=== PATIENT | female | born 1935 | race Two or more races ===

== ENCOUNTER → 2016-10-22 | Outpatient (CLI) | payer MEDICARE, MEDICAID | END | disposition home or self-care (01) | LOC: Rad HDHVI 09:34 | PROVIDERS: ATTEND Internal Medicine Cardiovascular Disease | DX: R07.89 Other chest pain (principal); E78.5 Hyperlipidemia, unspecified; R06.02 Shortness of breath | CPT/HCPCS: 93306; 93880 ==

== ENCOUNTER → 2016-11-06 | Outpatient (CLI) | payer MEDICARE, MEDICAID ==
[~2016-11-06] VITALS: Ht 149.9 cm; Wt 60.8 kg
[~2016-11-06] MED LIST: D5W 5% IV SCH; DIPYRIDAMOLE (5MG/ML) 10 ML VIAL IV ONE; DIPYRIDAMOLE IV SCH
[2016-11-06 12:28] LABS: Basophils # (auto) 0.1 uL; Basophils % (auto) 0.9 % (0.0-2.0); CONDITION Y; Eosinophils # (auto) 0.1 uL; Eosinophils % (auto) 2.1 % (0.0-7.0); Hematocrit 33.6 % (36.0-46.0); Hemoglobin 11.2 g/dL (12.2-16.2); Lymphocytes # (auto) 1.5 uL; Lymphocytes % (auto) 26.1 % (10.0-50.0); Mean Corpuscular Hemoglobin 29.1 pg (28.0-32.0); Mean Corpuscular Hgb Conc. 33.3 g/dL (32.0-36.0); Mean Corpuscular Volume 87.4 fL (80.0-100.0); Mean Platelet Volume 10.4 fL (7.4-10.4); Monocytes # (auto) 0.3 uL; Monocytes % (auto) 5.2 % (0.0-12.0); Neutrophils # (auto) 3.7 uL; Neutrophils % (auto) 65.7 % (37.0-80.0); Platelet Count (auto) 309 10^3/uL (140-450); Red Cell Distribution Width 15.1 % (11.6-16.0); Urine Bilirubin Negative (Negative); Urine Blood Negative /uL (Negative); Urine Color Yellow (Yellow); Urine Glucose Normal (Normal); Urine Ketone Negative (Negative); Urine Nitrite Negative (Negative); Urine Urobilinogen Normal (Negative); White Blood Cell 5.6 10^3/uL (4.4-10.8)
[2016-11-06 12:50] LABS: Albumin 3.7 g/dL (3.4-5.0); BUN/Creatinine Ratio 32.7; Bilirubin, Total 0.2 mg/dL (0.2-1.0); Calcium 9.2 mg/dL (8.5-10.1); Potassium 3.5 mmol/L (3.5-5.1); Total Protein 7.6 g/dL (6.4-8.2)
== END | disposition home or self-care (01) ==
LOC: Rad HDHVI 09:44
PROVIDERS: ATTEND Internal Medicine Cardiovascular Disease
DX: I10 Essential (primary) hypertension (principal); E78.00 Pure hypercholesterolemia, unspecified; E03.9 Hypothyroidism, unspecified; E11.9 Type 2 diabetes mellitus without complications; D64.9 Anemia, unspecified; E55.9 Vitamin D deficiency, unspecified; N39.0 Urinary tract infection, site not specified; D51.9 Vitamin B12 deficiency anemia, unspecified; E78.5 Hyperlipidemia, unspecified; R06.02 Shortness of breath
CPT/HCPCS: 36415; 78452; 80053; 80061; 81003; 82306; 82607; 83036; 84439; 84443; 85025; 93005; 96374; 96375; A9500; J1245

== ENCOUNTER → 2017-03-17 | Outpatient (CLI) | payer MEDICARE, MEDICAID | END | disposition home or self-care (01) | LOC: Rad HDHVI 08:47 | PROVIDERS: ATTEND Internal Medicine Cardiovascular Disease | DX: M85.9 Disorder of bone density and structure, unspecified (principal) | CPT/HCPCS: 77078 ==

== ENCOUNTER → 2017-08-07 | Outpatient (CLI) | payer MEDICARE, MEDICAID ==
[~2017-08-07] MED LIST changes: +ADENOSINE 54 MG in GIVE UN-DILUTED 0 ML IV ONE; +ADENOSINE 90 MG/30 ML INJ IV ONE; -D5W 5% IV SCH; -DIPYRIDAMOLE (5MG/ML) 10 ML VIAL IV ONE; -DIPYRIDAMOLE IV SCH
[2017-08-07 12:05] LABS: Basophils # (auto) 0.1 uL; Basophils % (auto) 0.9 % (0.0-2.0); Eosinophils # (auto) 0.3 uL; Eosinophils % (auto) 4.3 % (0.0-7.0); Hematocrit 30.5 % (36.0-46.0); Hemoglobin 10.1 g/dL (12.2-16.2); Lymphocytes # (auto) 1.5 uL; Lymphocytes % (auto) 24.7 % (10.0-50.0); Mean Corpuscular Hemoglobin 29.6 pg (28.0-32.0); Mean Corpuscular Hgb Conc. 33.3 g/dL (32.0-36.0); Mean Corpuscular Volume 88.9 fL (80.0-100.0); Monocytes # (auto) 0.5 uL; Monocytes % (auto) 7.4 % (0.0-12.0); Neutrophils # (auto) 3.8 uL; Neutrophils % (auto) 62.7 % (37.0-80.0); Nucleated Red Blood Cells % 0.1 %; Platelet Count (auto) 321 10^3/uL (140-450); Red Blood Cells 3.43 10^6/uL (4.0-5.20); Red Cell Distribution Width 14.2 % (11.8-14.3); White Blood Cell 6.1 10^3/uL (4.4-10.8)
[2017-08-07 12:12] LABS: Urine Blood Negative /uL (Negative); Urine Specific Gravity 1.009 (1.001-1.035)
[2017-08-07 12:20] LABS: Albumin 3.6 g/dL (3.4-5.0); BUN/Creatinine Ratio 24.5; Bilirubin, Total 0.2 mg/dL (0.2-1.0); Total Protein 7.3 g/dL (6.4-8.2)
[2017-08-07 12:24] LABS: Free T4 (Free Thyroxine) 0.96 ng/dL (0.89-1.76)
[2017-08-07 14:03] LABS: Potassium 2.9 mmol/L (3.5-5.1)
== END | disposition home or self-care (01) ==
LOC: Rad HDHVI 09:59
PROVIDERS: ATTEND Internal Medicine Cardiovascular Disease
DX: I10 Essential (primary) hypertension (principal); D64.9 Anemia, unspecified; E03.9 Hypothyroidism, unspecified; E11.9 Type 2 diabetes mellitus without complications; E55.9 Vitamin D deficiency, unspecified; D51.9 Vitamin B12 deficiency anemia, unspecified; N39.0 Urinary tract infection, site not specified; E78.5 Hyperlipidemia, unspecified; I47.2 Ventricular tachycardia; M60.9 Myositis, unspecified; M77.9 Enthesopathy, unspecified; R06.01 Orthopnea
CPT/HCPCS: 36415; 78452; 80053; 80061; 81003; 82306; 82607; 83036; 84439; 84443; 85025; 93005; 93306; 96374; 96375; A9500; J0153

== ENCOUNTER 2017-10-17 15:57 | Inpatient (IN) | payer MEDICARE, MEDICAID ==
[~2017-10-17] VITALS: Ht 149.9 cm; Wt 59.3 kg
[2017-10-17 16:22] VITALS: BP 153/70
[2017-10-17 16:36] VITALS: BP 153/70
[2017-10-17] MEDS ORDERED: MORPHINE SULF(PF) 0.5MG/ML 10ML VIAL IV PRN (17:15)
[2017-10-17] MEDS ORDERED: HYDROmorphone HCL 2 MG/ML VL IV PRN (17:15)
[2017-10-17] MEDS ORDERED: NITROGLYCERIN 0.4 MG SL TAB SL PRN (17:15)
[2017-10-17] MEDS: SODIUM CHLORIDE 0.9% 1,000 ML IV SCH (17:38)
[2017-10-17 17:43] LABS: Basophils # (auto) 0.1 uL; Eosinophils # (auto) 0.2 uL; Eosinophils % (auto) 2.3 % (0.0-7.0); Hematocrit 30.1 % (36.0-46.0); Hemoglobin 9.9 g/dL (12.2-16.2); Lymphocytes # (auto) 1.6 uL; Lymphocytes % (auto) 22.9 % (10.0-50.0); Mean Corpuscular Hemoglobin 28.4 pg (28.0-32.0); Mean Corpuscular Volume 85.9 fL (80.0-100.0); Monocytes # (auto) 0.5 uL; Monocytes % (auto) 7.6 % (0.0-12.0); Neutrophils # (auto) 4.6 uL; Neutrophils % (auto) 66.2 % (37.0-80.0); Platelet Count (auto) 361 10^3/uL (140-450); Red Cell Distribution Width 14.4 % (11.8-14.3)
[2017-10-17] MEDS ORDERED: CARV12.544 PO (17:57)
[2017-10-17] MEDS ORDERED: ONDA-101 SL (17:57)
[2017-10-17] MEDS ORDERED: AML5T PO (17:57)
[2017-10-17] MEDS ORDERED: FURO20TA3 PO (17:57)
[2017-10-17] MEDS ORDERED: POTA10TA51 PO (17:57)
[2017-10-17] MEDS ORDERED: HYDR-4683 PO (17:57)
[2017-10-17] MEDS ORDERED: ASP81EC PO (17:57)
[2017-10-17] MEDS ORDERED: EMPA1TAB PO (17:57)
[2017-10-17] MEDS ORDERED: ISOS30TA4 PO (17:57)
[2017-10-17] MEDS ORDERED: FER325T PO (17:57)
[2017-10-17] MEDS ORDERED: PAR20T PO (17:57)
[2017-10-17] MEDS ORDERED: VALS160T53 PO (17:57)
[2017-10-17 18:12] LABS: Alanine Aminotransferase 59 U/L (13-56); Albumin 3.2 g/dL (3.4-5.0); Alkaline Phosphatase 119 U/L (45-117); Anion Gap 9 (5-15); Aspartate Aminotransferase 29 U/L (15-37); BUN/Creatinine Ratio 27.3; Bilirubin, Direct < 0.1 mg/dL (0-0.2); Bilirubin, Total 0.2 mg/dL (0.2-1.0); Blood Urea Nitrogen 21 mg/dL (7-18); Calcium 9.2 mg/dL (8.5-10.1); Carbon Dioxide 25 mmol/L (21-32); Chloride 104 mmol/L (98-107); GFR African American 93 mL/min; GFR Non-African American 76 mL/min; Glucose 95 mg/dL (74-106); Potassium 3.7 mmol/L (3.5-5.1); Sodium 138 mmol/L (136-145); Total Protein 7.1 g/dL (6.4-8.2)
[2017-10-17 18:13] LABS: INR 0.98 (0.9-1.15); Partial Thromboplastin Time 26.6 sec (23.78-33.04); Prothrombin Time 10.5 sec (9.27-12.13)
[2017-10-17] MEDS: FAMOTIDINE 20 MG TAB PO SCH (21:07)
[2017-10-17 22:00] VITALS: BP 159/68
[2017-10-17] MEDS: MEPERIDINE HCL (50 MG/ML) 1 ML VIAL IV PRN (22:30)
[2017-10-18 05:00] VITALS: BP 137/68
[2017-10-18 08:00] VITALS: BP 140/63
[2017-10-18] MEDS ORDERED: IOHEXOL 300 MG/ML 100ML BOTTLE IJ ONE (10:10)
[2017-10-18 12:00] VITALS: BP 160/77
[2017-10-18] MEDS: FAMOTIDINE 20 MG TAB PO SCH ×2 (14:00→21:36)
[2017-10-18] MEDS: FUROSEMIDE 40 MG TAB PO SCH (14:00)
[2017-10-18] MEDS: VALSARTAN 80 MG TAB PO SCH (14:01)
[2017-10-18] MEDS: ISOSORBIDE MONONITRATE 60 MG TAB PO SCH (14:02)
[2017-10-18] MEDS: POTASSIUM CHL 10 Meq TABLET PO SCH (14:02)
[2017-10-18] MEDS: amLODIPine BESYLATE 5 MG TAB PO SCH (14:02)
[2017-10-18] MEDS: SODIUM CHLORIDE 0.9% 1,000 ML IV SCH (14:08)
[2017-10-18 15:00] VITALS: BP 131/58
[2017-10-18] MEDS: MEPERIDINE HCL (50 MG/ML) 1 ML VIAL IV PRN (20:10)
[2017-10-18 22:06] VITALS: BP 105/53
[2017-10-19 05:13] VITALS: BP 141/64
[2017-10-19] MEDS: MEPERIDINE HCL (50 MG/ML) 1 ML VIAL IV PRN ×3 (06:15→21:27)
[2017-10-19 09:00] VITALS: BP 114/65
[2017-10-19] MEDS: POTASSIUM CHL 10 Meq TABLET PO SCH (09:54)
[2017-10-19] MEDS: VALSARTAN 80 MG TAB PO SCH (09:55)
[2017-10-19] MEDS: amLODIPine BESYLATE 5 MG TAB PO SCH (09:56)
[2017-10-19] MEDS: ISOSORBIDE MONONITRATE 60 MG TAB PO SCH (09:56)
[2017-10-19] MEDS: SODIUM CHLORIDE 0.9% 1,000 ML IV SCH (09:57)
[2017-10-19] MEDS: FUROSEMIDE 40 MG TAB PO SCH (09:57)
[2017-10-19] MEDS: FAMOTIDINE 20 MG TAB PO SCH ×2 (10:02→21:27)
[2017-10-19 12:50] VITALS: BP 103/59
[2017-10-19 17:00] VITALS: BP 135/66
[2017-10-19 22:00] VITALS: BP 132/59
[2017-10-20] MEDS: SODIUM CHLORIDE 0.9% 1,000 ML IV SCH (05:41)
[2017-10-20 06:00] VITALS: BP 135/67
[2017-10-20] MEDS: MEPERIDINE HCL (50 MG/ML) 1 ML VIAL IV PRN ×3 (07:12→22:22)
[2017-10-20 08:11] VITALS: BP 147/79
[2017-10-20] MEDS: POTASSIUM CHL 10 Meq TABLET PO SCH (10:00)
[2017-10-20] MEDS: FUROSEMIDE 40 MG TAB PO SCH (10:00)
[2017-10-20] MEDS: FAMOTIDINE 20 MG TAB PO SCH ×2 (11:44→22:21)
[2017-10-20] MEDS: amLODIPine BESYLATE 5 MG TAB PO SCH (11:44)
[2017-10-20] MEDS: VALSARTAN 80 MG TAB PO SCH (11:44)
[2017-10-20] MEDS: ISOSORBIDE MONONITRATE 60 MG TAB PO SCH (11:45)
[2017-10-20 13:00] VITALS: BP 147/68
[2017-10-20] MEDS ORDERED: MIDAZOLAM HCL 1MG/1ML-2 ML VIAL ONE (13:31)
[2017-10-20] MEDS ORDERED: fentaNYL CITRATE 100 MCG/2 ML VL ONE (13:31)
[2017-10-20] MEDS ORDERED: LIDOCAINE 2% (LOCAL ANESTH.) PF 5ml SDV ONE (13:36)
[2017-10-20 16:18] VITALS: BP 129/77
[2017-10-20 20:00] VITALS: BP 115/58
[2017-10-20 22:00] VITALS: BP 115/58
[2017-10-21] MEDS: SODIUM CHLORIDE 0.9% 1,000 ML IV SCH ×2 (01:15→21:15)
[2017-10-21] MEDS: MEPERIDINE HCL (50 MG/ML) 1 ML VIAL IV PRN ×4 (03:34→22:15)
[2017-10-21 06:07] VITALS: BP 120/61
[2017-10-21 08:31] VITALS: BP 148/68
[2017-10-21] MEDS: VALSARTAN 80 MG TAB PO SCH (08:38)
[2017-10-21] MEDS: POTASSIUM CHL 10 Meq TABLET PO SCH (08:39)
[2017-10-21] MEDS: ISOSORBIDE MONONITRATE 60 MG TAB PO SCH (08:39)
[2017-10-21] MEDS: amLODIPine BESYLATE 5 MG TAB PO SCH (08:40)
[2017-10-21] MEDS: FUROSEMIDE 40 MG TAB PO SCH (08:40)
[2017-10-21] MEDS: FAMOTIDINE 20 MG TAB PO SCH ×2 (08:40→22:00)
[2017-10-21 12:55] VITALS: BP 132/57
[2017-10-21 16:17] VITALS: BP 117/76
[2017-10-21] MEDS: ACETAMINOPHEN 325 MG TAB PO PRN (16:19)
[2017-10-21 16:59] LABS: Basophils # (auto) 0 uL; Basophils % (auto) 0.6 % (0.0-2.0); Eosinophils # (auto) 0.2 uL; Eosinophils % (auto) 2.3 % (0.0-7.0); Hematocrit 27.4 % (36.0-46.0); Hemoglobin 9.1 g/dL (12.2-16.2); Lymphocytes # (auto) 1.4 uL; Lymphocytes % (auto) 18.6 % (10.0-50.0); Mean Corpuscular Hemoglobin 28.2 pg (28.0-32.0); Mean Corpuscular Hgb Conc. 33.2 g/dL (32.0-36.0); Mean Corpuscular Volume 84.8 fL (80.0-100.0); Monocytes # (auto) 0.7 uL; Monocytes % (auto) 9.3 % (0.0-12.0); Neutrophils # (auto) 5.3 uL; Neutrophils % (auto) 69.2 % (37.0-80.0); Platelet Count (auto) 298 10^3/uL (140-450); Red Blood Cells 3.23 10^6/uL (4.0-5.20); Red Cell Distribution Width 14.1 % (11.8-14.3); White Blood Cell 7.7 10^3/uL (4.4-10.8)
[2017-10-21 16:59] LABS: Urine Bacteria NONE SEEN /hpf (None Seen); Urine Blood Negative /uL (Negative); Urine WBC 1 /hpf (0 - 5)
[2017-10-21 17:12] LABS: Albumin 2.9 g/dL (3.4-5.0); BUN/Creatinine Ratio 21.3; Bilirubin, Total 0.2 mg/dL (0.2-1.0); Calcium 8.5 mg/dL (8.5-10.1); Potassium 3.5 mmol/L (3.5-5.1); Total Protein 6.7 g/dL (6.4-8.2)
[2017-10-21 22:51] VITALS: BP 131/75
[2017-10-22] MEDS: MEPERIDINE HCL (50 MG/ML) 1 ML VIAL IV PRN ×4 (04:57→21:24)
[2017-10-22 05:06] VITALS: BP 136/66
[2017-10-22 08:17] VITALS: BP 150/63
[2017-10-22] MEDS: ISOSORBIDE MONONITRATE 60 MG TAB PO SCH (09:21)
[2017-10-22] MEDS: FUROSEMIDE 40 MG TAB PO SCH (09:21)
[2017-10-22] MEDS: FAMOTIDINE 20 MG TAB PO SCH ×2 (09:22→23:04)
[2017-10-22] MEDS: POTASSIUM CHL 10 Meq TABLET PO SCH (09:22)
[2017-10-22] MEDS: amLODIPine BESYLATE 5 MG TAB PO SCH (09:23)
[2017-10-22] MEDS: VALSARTAN 80 MG TAB PO SCH (09:23)
[2017-10-22] MEDS: ACETAMINOPHEN 325 MG TAB PO PRN ×3 (11:06→23:39)
[2017-10-22] MEDS ORDERED: BRIN1SUS EACHEYE (11:25)
[2017-10-22] MEDS ORDERED: TIMO0.5S3 EACHEYE (11:25)
[2017-10-22] MEDS ORDERED: TRAV0.00 EACHEYE (11:25)
[2017-10-22 12:44] VITALS: BP 139/63
[2017-10-22 17:00] VITALS: BP 130/68
[2017-10-22] MEDS: SODIUM CHLORIDE 0.9% 1,000 ML IV SCH (17:27)
[2017-10-22 22:00] VITALS: BP 150/65
[2017-10-22] MEDS: EYE EACHEYE SCH ×2 (23:02→23:03)
[2017-10-22] MEDS: AZOPT 1% EACHEYE SCH (23:02)
[2017-10-22] MEDS: TIMOLOL MAL 0.5% OPTH(EYE) SOL 5ML EACHEYE SCH (23:03)
[2017-10-22] MEDS: TRAVATAN 0.004% EACHEYE SCH (23:03)
[2017-10-23 05:00] VITALS: BP 159/68
[2017-10-23] MEDS: ACETAMINOPHEN 325 MG TAB PO PRN ×3 (06:16→23:03)
[2017-10-23 08:00] VITALS: BP 153/74
[2017-10-23 09:00] VITALS: BP 153/74
[2017-10-23] MEDS: TIMOLOL MAL 0.5% OPTH(EYE) SOL 5ML EACHEYE SCH ×2 (10:25→23:01)
[2017-10-23] MEDS: EYE EACHEYE SCH ×3 (10:25→23:01)
[2017-10-23] MEDS: AZOPT 1% EACHEYE SCH ×2 (10:25→23:01)
[2017-10-23] MEDS: POTASSIUM CHL 10 Meq TABLET PO SCH (10:26)
[2017-10-23] MEDS: amLODIPine BESYLATE 5 MG TAB PO SCH (10:26)
[2017-10-23] MEDS: FUROSEMIDE 40 MG TAB PO SCH (10:26)
[2017-10-23] MEDS: ISOSORBIDE MONONITRATE 60 MG TAB PO SCH (10:27)
[2017-10-23] MEDS: FAMOTIDINE 20 MG TAB PO SCH ×2 (10:27→23:01)
[2017-10-23] MEDS: VALSARTAN 80 MG TAB PO SCH (10:27)
[2017-10-23 13:00] VITALS: BP 149/74
[2017-10-23 17:21] VITALS: BP 146/74
[2017-10-23] MEDS ORDERED: EPOETIN ALFA 4,000 UNIT/ML VL SC ONE (18:00)
[2017-10-23] MEDS: FERROUS SULFATE 325 MG TAB PO SCH (18:23)
[2017-10-23 22:00] VITALS: BP 136/66
[2017-10-23] MEDS: TRAVATAN 0.004% EACHEYE SCH (23:01)
[2017-10-24 05:00] VITALS: BP 148/70
[2017-10-24 08:00] VITALS: BP 157/66
[2017-10-24] MEDS: FERROUS SULFATE 325 MG TAB PO SCH (08:21)
[2017-10-24 09:00] VITALS: BP 157/66
[2017-10-24] MEDS: TIMOLOL MAL 0.5% OPTH(EYE) SOL 5ML EACHEYE SCH (10:14)
[2017-10-24] MEDS: FAMOTIDINE 20 MG TAB PO SCH (10:15)
[2017-10-24] MEDS: amLODIPine BESYLATE 5 MG TAB PO SCH (10:15)
[2017-10-24] MEDS: VALSARTAN 80 MG TAB PO SCH (10:16)
[2017-10-24] MEDS: FUROSEMIDE 40 MG TAB PO SCH (10:16)
[2017-10-24] MEDS: POTASSIUM CHL 10 Meq TABLET PO SCH (10:16)
[2017-10-24] MEDS: ISOSORBIDE MONONITRATE 60 MG TAB PO SCH (10:16)
[2017-10-24] MEDS: EYE EACHEYE SCH (10:17)
[2017-10-24] MEDS: AZOPT 1% EACHEYE SCH (10:17)
[2017-10-24] MEDS: ACETAMINOPHEN 325 MG TAB PO PRN (11:16)
[2017-10-24 13:00] VITALS: BP 145/73
[2017-10-24 15:15] VITALS: BP 157/74
== END 2017-10-24 16:30 | disposition home or self-care (01) | DRG 181 ==
LOC: TELE-WESTW 16:08 → WEST WING 20:54
PROVIDERS: ADMIT Internal Medicine Cardiovascular Disease; ATTEND Internal Medicine Cardiovascular Disease
PROC: 0BBC3ZX Excision of Right Upper Lung Lobe, Percutaneous Approach, Diagnostic (ICD-10-PCS; principal; 2017-10-20)
DX: C34.11 Malignant neoplasm of upper lobe, right bronchus or lung (principal); E44.1 Mild protein-calorie malnutrition; D64.9 Anemia, unspecified; R91.8 Other nonspecific abnormal finding of lung field; I10 Essential (primary) hypertension; E78.5 Hyperlipidemia, unspecified; E86.9 Volume depletion, unspecified; J44.9 Chronic obstructive pulmonary disease, unspecified; R74.8 Abnormal levels of other serum enzymes; K21.0 Gastro-esophageal reflux disease with esophagitis; H40.9 Unspecified glaucoma; I25.10 Atherosclerotic heart disease of native coronary artery without angina pectoris; Z71.3 Dietary counseling and surveillance; Z90.49 Acquired absence of other specified parts of digestive tract
CPT/HCPCS: 10022; 36415; 71045; 71250; 71260; 74177; 77012; 80053; 80076; 81001; 85025; 85610; 85730; 87086; G0463; J2250

== ENCOUNTER → 2017-10-17 | Outpatient (CLI) | payer MEDICARE, MEDICAID ==
[~2017-10-17] MED LIST changes: -ADENOSINE 54 MG in GIVE UN-DILUTED 0 ML IV ONE; -ADENOSINE 90 MG/30 ML INJ IV ONE; +ALPR0.254 PO; +AML5T PO; +ASP81EC PO; +BRIN1SUS EACHEYE; +BRIN1SUS OP; +CARV12.544 PO; +EMPA1TAB PO; +FER325T PO; +FURO20TA3 PO; +GUAI100S6 PO; +HYDR-4683 PO; +IRBE300T46 PO; +ISOS30TA4 PO; +ONDA-101 SL; +PAR20T PO; +PERCOT PO; +POTA10TA51 PO; +SODIUM CHLORIDE 0.9% 250 ML IV ONE; +TIMO0.5S38 EACHEYE; +TRAV0.00 EACHEYE; +VALS160T53 PO
[2017-10-17 13:45] VITALS: BP 159/71
[2017-10-17 16:00] VITALS: BP 159/61
== END | disposition home or self-care (01) ==
LOC: CHF HDHVI 13:34
PROVIDERS: ATTEND Internal Medicine Cardiovascular Disease
DX: K57.92 Diverticulitis of intestine, part unspecified, without perforation or abscess without bleeding (principal); R91.8 Other nonspecific abnormal finding of lung field
CPT/HCPCS: G0463

== ENCOUNTER 2018-01-21 07:10 | Inpatient (IN) | payer MEDICARE, MEDICAID ==
[~2018-01-21] VITALS: Ht 137.2 cm; Wt 59.4 kg
[2018-01-21 07:10] VITALS: BP 121/67
[~2018-01-21 07:10] MED LIST changes: -ALPR0.254 PO; -BRIN1SUS OP; -GUAI100S6 PO; -IRBE300T46 PO; -PERCOT PO; -SODIUM CHLORIDE 0.9% 250 ML IV ONE
[2018-01-21 08:00] VITALS: BP 121/67
[2018-01-21 09:00] VITALS: BP 121/67
[2018-01-21] MEDS ORDERED: DEXTROSE (50%) 50ML SYRG IV PRN (09:15)
[2018-01-21] MEDS ORDERED: MORPHINE SULF INJ 2 MG/ML SYRINGE 1ML IV PRN (09:15)
[2018-01-21] MEDS ORDERED: NITROGLYCERIN 0.4 MG SL TAB SL PRN (09:15)
[2018-01-21] MEDS ORDERED: HYDROcodone-ACET 10/325MG TAB PO PRN (09:15)
[2018-01-21] MEDS ORDERED: IOHEXOL 300 MG/ML 100ML BOTTLE IJ ONE (09:38)
[2018-01-21] MEDS ORDERED: LORazepam 2MG/ML-1ML VIAL IV PRN (11:15)
[2018-01-21] MEDS: carBAMazepine 200 MG TAB PO SCH (11:17)
[2018-01-21] MEDS: SODIUM CHLORIDE 0.9% 1,000 ML IV SCH (11:17)
[2018-01-21] MEDS: InsuLIN REG 1unit/0.01ml Soln (100units/ml) SC SCH ×3 (11:30→22:17)
[2018-01-21] MEDS: ACCU-CHEK COMFORT CURVE STRIP VI SCH ×3 (11:31→22:16)
[2018-01-21] MEDS: DEXAMETHASONE SOD PHOS 4 MG/1ML SDV INJ IV SCH ×3 (11:32→23:37)
[2018-01-21] MEDS ORDERED: GUAI100S6 PO (12:07)
[2018-01-21] MEDS ORDERED: EMPA1TAB PO (12:07)
[2018-01-21] MEDS ORDERED: ALPR0.254 PO (12:07)
[2018-01-21] MEDS ORDERED: PERCOT PO (12:07)
[2018-01-21] MEDS ORDERED: BRIN1SUS OP (12:07)
[2018-01-21] MEDS ORDERED: IRBE300T46 PO (12:07)
[2018-01-21] MEDS ORDERED: ALPRAZolam 0.25 MG TAB PO PRN (12:15)
[2018-01-21] MEDS ORDERED: OXYCODONE W/ ACETAMINOPHEN 5/325MG TABLET PO PRN (12:15)
[2018-01-21] MEDS ORDERED: ONDANSETRON ODT 4 MG TAB PO PRN (12:15)
[2018-01-21 13:00] VITALS: BP 120/64
[2018-01-21] MEDS: POTASSIUM CHL 10 Meq TABLET PO SCH ×2 (13:20→22:16)
[2018-01-21 14:22] LABS: Basophils # (auto) 0 uL; Basophils % (auto) 0.4 % (0.0-2.0); Eosinophils # (auto) 0 uL; Eosinophils % (auto) 0.3 % (0.0-7.0); Monocytes # (auto) 0.2 uL; Red Cell Distribution Width 15.6 % (11.8-14.3)
[2018-01-21 14:24] LABS: Hemoglobin 9.3 g/dL (12.2-16.2); Lymphocytes # (auto) 0.6 uL; Lymphocytes % (auto) 7.5 % (10.0-50.0); Mean Corpuscular Hemoglobin 25.6 pg (28.0-32.0); Mean Corpuscular Hgb Conc. 32.1 g/dL (32.0-36.0); Mean Corpuscular Volume 79.6 fL (80.0-100.0); Neutrophils # (auto) 7.5 uL; Neutrophils % (auto) 89.8 % (37.0-80.0); Platelet Count (auto) 451 10^3/uL (140-450); Red Blood Cells 3.64 10^6/uL (4.0-5.20); White Blood Cell 8.3 10^3/uL (4.4-10.8)
[2018-01-21 15:30] LABS: Albumin 2.8 g/dL (3.4-5.0); BUN/Creatinine Ratio 23.8; Bilirubin, Total 0.1 mg/dL (0.2-1.0); Calcium 9.2 mg/dL (8.5-10.1); Potassium 3.9 mmol/L (3.5-5.1); Total Protein 7.9 g/dL (6.4-8.2)
[2018-01-21] MEDS: HYDROcodone-ACET 10/325MG TAB PO PRN (15:48)
[2018-01-21] MEDS: guaiFENesin-CODEINE LIQUID 5 ML UD GT PRN (15:49)
[2018-01-21 17:00] VITALS: BP 126/68
[2018-01-21] MEDS ORDERED: PNEUMOCOCCAL VACC POLYS 25 MCG/0.5 ML VIAL IM ONE (18:00)
[2018-01-21 21:49] VITALS: BP 143/65
[2018-01-21] MEDS ORDERED: LEVETIRACETAM 500 MG TAB PO SCH ×2 (22:00)
[2018-01-21] MEDS: OPTH EACHEYE SCH ×2 (22:15→22:26)
[2018-01-21] MEDS: AZOPT 1% EACHEYE SCH (22:15)
[2018-01-21] MEDS: TIMOLOL MAL 0.5% OPTH(EYE) SOL 5ML EACHEYE SCH (22:15)
[2018-01-21] MEDS: CARVEDILOL 12.5 MG TAB PO SCH (22:16)
[2018-01-21] MEDS: ISOSORBIDE MONONITRATE 60 MG TAB PO SCH (22:16)
[2018-01-21] MEDS: TRAVATAN Z 0.004% EACHEYE SCH (22:26)
[2018-01-22 05:00] VITALS: BP 117/61
[2018-01-22] MEDS: POTASSIUM CHL 10 Meq TABLET PO SCH ×3 (06:23→21:40)
[2018-01-22] MEDS: DEXAMETHASONE SOD PHOS 4 MG/1ML SDV INJ IV SCH ×2 (06:23→21:43)
[2018-01-22] MEDS: InsuLIN REG 1unit/0.01ml Soln (100units/ml) SC SCH ×4 (06:24→21:52)
[2018-01-22] MEDS: ACCU-CHEK COMFORT CURVE STRIP VI SCH ×4 (06:24→21:53)
[2018-01-22] MEDS: SODIUM CHLORIDE 0.9% 1,000 ML IV SCH (06:24)
[2018-01-22 08:00] VITALS: BP 148/69
[2018-01-22 09:00] VITALS: BP 148/69
[2018-01-22] MEDS: FERROUS SULFATE 325 MG TAB PO SCH (09:51)
[2018-01-22] MEDS: carBAMazepine 200 MG TAB PO SCH (09:51)
[2018-01-22] MEDS: ASPirin 81 mg TAB PO SCH (09:51)
[2018-01-22] MEDS: CARVEDILOL 12.5 MG TAB PO SCH ×2 (09:52→21:41)
[2018-01-22] MEDS: PARoxetine 20 MG TAB PO SCH (09:52)
[2018-01-22] MEDS: amLODIPine BESYLATE 5 MG TAB PO SCH (09:52)
[2018-01-22] MEDS: FUROSEMIDE 20 MG TAB PO SCH (09:52)
[2018-01-22] MEDS: TIMOLOL MAL 0.5% OPTH(EYE) SOL 5ML EACHEYE SCH ×2 (09:53→21:43)
[2018-01-22] MEDS: OPTH EACHEYE SCH ×3 (09:53→21:44)
[2018-01-22] MEDS: JARDIANCE 10 MG PO SCH (09:53)
[2018-01-22] MEDS: AZOPT 1% EACHEYE SCH ×2 (09:53→21:44)
[2018-01-22] MEDS ORDERED: GADOPENTETATE DIMEGLUMINE (10MMOL/20 ML) VIAL IV ONE (10:45)
[2018-01-22 13:00] VITALS: BP 146/70
[2018-01-22 17:00] VITALS: BP 140/64
[2018-01-22] MEDS: HYDROcodone-ACET 10/325MG TAB PO PRN (17:05)
[2018-01-22 20:58] VITALS: BP 141/64
[2018-01-22] MEDS: TRAVATAN Z 0.004% EACHEYE SCH (21:43)
[2018-01-22] MEDS: ISOSORBIDE MONONITRATE 60 MG TAB PO SCH (21:43)
[2018-01-23] MEDS: SODIUM CHLORIDE 0.9% 1,000 ML IV SCH ×2 (02:56→21:52)
[2018-01-23 05:14] VITALS: BP 146/68
[2018-01-23] MEDS: POTASSIUM CHL 10 Meq TABLET PO SCH ×3 (05:59→21:51)
[2018-01-23] MEDS: ACCU-CHEK COMFORT CURVE STRIP VI SCH ×4 (05:59→22:03)
[2018-01-23] MEDS: InsuLIN REG 1unit/0.01ml Soln (100units/ml) SC SCH ×4 (06:00→22:00)
[2018-01-23] MEDS: HYDROcodone-ACET 10/325MG TAB PO PRN ×2 (06:13→20:39)
[2018-01-23 08:00] VITALS: BP 132/74
[2018-01-23 09:00] VITALS: BP 132/74
[2018-01-23] MEDS: carBAMazepine 200 MG TAB PO SCH (09:45)
[2018-01-23] MEDS: FERROUS SULFATE 325 MG TAB PO SCH (09:45)
[2018-01-23] MEDS: ASPirin 81 mg TAB PO SCH (09:46)
[2018-01-23] MEDS: PARoxetine 20 MG TAB PO SCH (09:46)
[2018-01-23] MEDS: FUROSEMIDE 20 MG TAB PO SCH (09:46)
[2018-01-23] MEDS: CARVEDILOL 12.5 MG TAB PO SCH ×2 (09:47→21:51)
[2018-01-23] MEDS: JARDIANCE 10 MG PO SCH (09:47)
[2018-01-23] MEDS: amLODIPine BESYLATE 5 MG TAB PO SCH (09:47)
[2018-01-23] MEDS: TIMOLOL MAL 0.5% OPTH(EYE) SOL 5ML EACHEYE SCH ×2 (09:48→21:50)
[2018-01-23] MEDS: DEXAMETHASONE SOD PHOS 4 MG/1ML SDV INJ IV SCH ×2 (09:48→21:50)
[2018-01-23] MEDS: AZOPT 1% EACHEYE SCH ×2 (09:48→21:50)
[2018-01-23] MEDS: OPTH EACHEYE SCH ×3 (09:48→21:50)
[2018-01-23 13:06] VITALS: BP 119/66
[2018-01-23] MEDS ORDERED: MORPHINE SULFATE 4 MG/ML SYR/VIAL IV PRN (16:00)
[2018-01-23] MEDS: guaiFENesin-CODEINE LIQUID 5 ML UD GT PRN (16:43)
[2018-01-23 16:49] VITALS: BP 134/56
[2018-01-23] MEDS: TRAVATAN Z 0.004% EACHEYE SCH (21:49)
[2018-01-23] MEDS: ISOSORBIDE MONONITRATE 60 MG TAB PO SCH (21:51)
[2018-01-23 22:00] VITALS: BP 147/69
[2018-01-24 05:00] VITALS: BP 148/72
[2018-01-24] MEDS: POTASSIUM CHL 10 Meq TABLET PO SCH ×3 (06:00→21:31)
[2018-01-24] MEDS: InsuLIN REG 1unit/0.01ml Soln (100units/ml) SC SCH ×4 (06:59→21:33)
[2018-01-24] MEDS: ACCU-CHEK COMFORT CURVE STRIP VI SCH ×4 (06:59→21:33)
[2018-01-24 08:00] VITALS: BP 136/70
[2018-01-24] MEDS: HYDROcodone-ACET 10/325MG TAB PO PRN ×2 (09:02→18:38)
[2018-01-24] MEDS: JARDIANCE 10 MG PO SCH (10:00)
[2018-01-24] MEDS: ASPirin 81 mg TAB PO SCH (12:16)
[2018-01-24] MEDS: AZOPT 1% EACHEYE SCH ×2 (12:16→21:32)
[2018-01-24] MEDS: OPTH EACHEYE SCH ×3 (12:16→21:32)
[2018-01-24] MEDS: FERROUS SULFATE 325 MG TAB PO SCH (12:17)
[2018-01-24] MEDS: FUROSEMIDE 20 MG TAB PO SCH (12:24)
[2018-01-24] MEDS: carBAMazepine 200 MG TAB PO SCH (12:25)
[2018-01-24] MEDS: PARoxetine 20 MG TAB PO SCH (12:25)
[2018-01-24] MEDS: amLODIPine BESYLATE 5 MG TAB PO SCH (12:27)
[2018-01-24] MEDS: CARVEDILOL 12.5 MG TAB PO SCH ×2 (12:28→21:32)
[2018-01-24] MEDS: TIMOLOL MAL 0.5% OPTH(EYE) SOL 5ML EACHEYE SCH ×2 (12:40→21:32)
[2018-01-24] MEDS: DEXAMETHASONE SOD PHOS 4 MG/1ML SDV INJ IV SCH ×2 (12:40→21:32)
[2018-01-24 12:49] VITALS: BP 137/61
[2018-01-24 17:02] VITALS: BP_SYST 114
[2018-01-24] MEDS: SODIUM CHLORIDE 0.9% 1,000 ML IV SCH (18:07)
[2018-01-24 21:30] VITALS: BP 135/66
[2018-01-24] MEDS: ISOSORBIDE MONONITRATE 60 MG TAB PO SCH (21:31)
[2018-01-24] MEDS: TRAVATAN Z 0.004% EACHEYE SCH (21:32)
[2018-01-25] MEDS: guaiFENesin-CODEINE LIQUID 5 ML UD GT PRN ×2 (02:37→19:47)
[2018-01-25] MEDS: HYDROcodone-ACET 10/325MG TAB PO PRN ×3 (04:49→19:46)
[2018-01-25 05:00] VITALS: BP 139/56
[2018-01-25] MEDS: POTASSIUM CHL 10 Meq TABLET PO SCH ×3 (06:20→22:47)
[2018-01-25] MEDS: ACCU-CHEK COMFORT CURVE STRIP VI SCH ×4 (06:45→22:00)
[2018-01-25] MEDS: InsuLIN REG 1unit/0.01ml Soln (100units/ml) SC SCH ×4 (06:45→22:00)
[2018-01-25 09:00] VITALS: BP 142/70
[2018-01-25] MEDS: DEXAMETHASONE SOD PHOS 4 MG/1ML SDV INJ IV SCH ×2 (09:21→22:45)
[2018-01-25] MEDS: OPTH EACHEYE SCH ×3 (09:21→22:44)
[2018-01-25] MEDS: AZOPT 1% EACHEYE SCH ×2 (09:21→22:44)
[2018-01-25] MEDS: FERROUS SULFATE 325 MG TAB PO SCH (09:21)
[2018-01-25] MEDS: TIMOLOL MAL 0.5% OPTH(EYE) SOL 5ML EACHEYE SCH ×2 (09:21→22:43)
[2018-01-25] MEDS: ASPirin 81 mg TAB PO SCH (09:21)
[2018-01-25] MEDS: CARVEDILOL 12.5 MG TAB PO SCH ×2 (09:25→22:46)
[2018-01-25] MEDS: FUROSEMIDE 20 MG TAB PO SCH (09:25)
[2018-01-25] MEDS: amLODIPine BESYLATE 5 MG TAB PO SCH (09:25)
[2018-01-25] MEDS: carBAMazepine 200 MG TAB PO SCH (09:26)
[2018-01-25] MEDS: PARoxetine 20 MG TAB PO SCH (09:26)
[2018-01-25] MEDS: JARDIANCE 10 MG PO SCH (10:00)
[2018-01-25] MEDS: SODIUM CHLORIDE 0.9% 1,000 ML IV SCH (13:15)
[2018-01-25 13:25] VITALS: BP 140/65
[2018-01-25 17:00] VITALS: BP 142/67
[2018-01-25 20:00] VITALS: BP 160/72
[2018-01-25 22:00] VITALS: BP 160/72
[2018-01-25] MEDS: TRAVATAN Z 0.004% EACHEYE SCH (22:44)
[2018-01-25] MEDS: ISOSORBIDE MONONITRATE 60 MG TAB PO SCH (22:48)
[2018-01-26] MEDS: guaiFENesin-CODEINE LIQUID 5 ML UD GT PRN ×2 (01:44→07:45)
[2018-01-26] MEDS: HYDROcodone-ACET 10/325MG TAB PO PRN ×3 (01:46→16:47)
[2018-01-26 05:00] VITALS: BP 130/62
[2018-01-26] MEDS: InsuLIN REG 1unit/0.01ml Soln (100units/ml) SC SCH ×3 (06:27→17:00)
[2018-01-26] MEDS: ACCU-CHEK COMFORT CURVE STRIP VI SCH ×3 (06:27→17:00)
[2018-01-26] MEDS: POTASSIUM CHL 10 Meq TABLET PO SCH ×2 (06:28→14:55)
[2018-01-26 09:00] VITALS: BP 132/64
[2018-01-26] MEDS ORDERED: carBAMazepine 200 MG TAB PO SCH (10:00)
[2018-01-26] MEDS: FERROUS SULFATE 325 MG TAB PO SCH (10:08)
[2018-01-26] MEDS: amLODIPine BESYLATE 5 MG TAB PO SCH (10:08)
[2018-01-26] MEDS: CARVEDILOL 12.5 MG TAB PO SCH (10:10)
[2018-01-26] MEDS: ASPirin 81 mg TAB PO SCH (10:10)
[2018-01-26] MEDS: PARoxetine 20 MG TAB PO SCH (10:11)
[2018-01-26] MEDS: FUROSEMIDE 20 MG TAB PO SCH (10:11)
[2018-01-26] MEDS: JARDIANCE 10 MG PO SCH (10:12)
[2018-01-26] MEDS: DEXAMETHASONE SOD PHOS 4 MG/1ML SDV INJ IV SCH (10:12)
[2018-01-26] MEDS: SODIUM CHLORIDE 0.9% 1,000 ML IV SCH (10:45)
[2018-01-26] MEDS: TIMOLOL MAL 0.5% OPTH(EYE) SOL 5ML EACHEYE SCH (10:45)
[2018-01-26] MEDS: AZOPT 1% EACHEYE SCH (10:45)
[2018-01-26] MEDS: OPTH EACHEYE SCH (10:45)
[2018-01-26 12:00] VITALS: BP 131/57
[2018-01-26 16:29] VITALS: BP 112/49
== END 2018-01-26 19:53 | DRG 100 ==
LOC: TELE-CENTR 07:10
PROVIDERS: ADMIT Internal Medicine Cardiovascular Disease; ATTEND Internal Medicine Cardiovascular Disease
DX: G40.209 Localization-related (focal) (partial) symptomatic epilepsy and epileptic syndromes with complex partial seizures, not intractable, without status epilepticus (principal); G93.6 Cerebral edema; C34.90 Malignant neoplasm of unspecified part of unspecified bronchus or lung; C78.7 Secondary malignant neoplasm of liver and intrahepatic bile duct; C79.51 Secondary malignant neoplasm of bone; C79.31 Secondary malignant neoplasm of brain; D64.9 Anemia, unspecified; Z66 Do not resuscitate; E11.9 Type 2 diabetes mellitus without complications; E78.5 Hyperlipidemia, unspecified; F32.9 Major depressive disorder, single episode, unspecified; G89.29 Other chronic pain; H40.9 Unspecified glaucoma; I10 Essential (primary) hypertension; I25.10 Atherosclerotic heart disease of native coronary artery without angina pectoris; K21.9 Gastro-esophageal reflux disease without esophagitis; Z82.0 Family history of epilepsy and other diseases of the nervous system; Z82.49 Family history of ischemic heart disease and other diseases of the circulatory system; Z83.3 Family history of diabetes mellitus; Z90.710 Acquired absence of both cervix and uterus; Z79.899 Other long term (current) drug therapy; Z79.82 Long term (current) use of aspirin
CPT/HCPCS: 36415; 70470; 70553; 71045; 80053; 82962; 85025; 87081; 95819; 97110; 97116; 97163; 97530; A6257; J1100; J1815